=== PATIENT | female | born 1935 | race Caucasian/White ===

== ENCOUNTER 2023-05-25 10:27 | Observation (INO) | payer MEDICARE, OTHER, SELFPAY ==
[2023-05-25] VITALS (116 sets, daily range): BP systolic 61–164; BP diastolic 11–131; PULSE 44–137; RESP 26–46; TEMP 36.1–38.4; O2SAT 49–100
--- NOTE | ~2023-05-25 | XR_ITS ---
XR chest 1V portable DATE: 05/25/2023 11:15 INDICATION: ET tube placement TECHNIQUE: Portable AP chest on 05/25/2023 at 1112 hours COMPARISON: None FINDINGS: Tip of ET tube is within 1.5 cm of neda. Cornish range is 2-5 cm. Normal heart size. Aortic arch calcification. Moderate hyperinflation. Mild infiltrate or atelectasis is suggested in the left lower lobe. Retrocar diac density suggesting possible hiatal hernia. No pleural effusion or pulmonary vascular congestion or pneumothorax. No hilar or mediastinal enlarge ment is evident. Diffuse osteopenia. IMPRESSION: ET tube tip within 1.5 cm of neda; ideal range is 2-5 cm Mild left lower lobe infiltrate or atelectasis and possible hiatal hernia Aortic atherosclerosis Reviewed, dictated and finalized at [facility].
--- NOTE | ~2023-05-25 | CT_ITS ---
EXAMINATION: CT brain wo con DATE: 05/25/2023 14:22 INDICATION: Found unresponsive TECHNIQUE: Computed tomography (CT) of the head was performed without intravenous contrast. The mA wa s adjusted according to patient size. Iterative reconstruction technique was employed. Exam dose: 68 1.0 mGy-cm total exam DLP. COMPARISON: 11/08/2015 CT brain FINDINGS: There is a huge right frontal cerebral hematoma with surrounding edema. The hematoma measur es up to 6.7 cm anteroposterior and 5.4 cm transverse dimension. There is subfalcine prominent leftwa rd shift of the midline structures with effacement of the frontal horns and bodies of the lateral jeffrey tricles. There are some areas of subarachnoid blood most prominently in the high left frontal area. There is prominent encephalomalacia of the left frontal lobe likely due to prior infarct or hematoma or other remote insult. No subdural or epidural hematoma is detected. No skull fracture is detected. The mastoid air cells and included paranasal sinuses are normally developed and aerated. IMPRESSION: Acute right frontal cerebral hematoma with prominent subfalcine leftward shift of the mi dline structures, mild subarachnoid hemorrhage Prominent chronic left frontal encephalomalacia Reviewed, dictated and finalized at [facility] Reviewed, dictated and finalized at [facility]. IMPRESSION: Acute right frontal cerebral hematoma with prominent subfalcine le ftward shift of the midline structures, mild subarachnoid hemorrhage Prominent chronic left frontal encephalomalacia
--- NOTE | ~2023-05-25 | CT_ITS ---
. EXAMINATION: CT chest abdomen pelvis wo con DATE: 05/25/2023 14:22 INDICATION: Found unresponsive TECHNIQUE: Computed tomography (CT) of the chest, abdomen, and pelvis was performed without intraveno us contrast. Automated exposure control and iterative reconstruction technique were employed. Exam do se: 1061.47 mGy-cm total exam DLP. COMPARISON: 05/2020 portable AP chest at 1112 hours FINDINGS: CHEST CT: ET tube tip is situated at the neda, directed toward the right mainstem bronchus. Repositioning at least 2 to 3 cm proximally is recommended. Heart size is normal. No pericardial or pleural effusion. No thoracic aortic aneurysm. There is thora cic aortic, great vessel and coronary artery calcification. Moderately large sliding type hiatal hernia. There calcified left hilar nodes. There is suggestion of some bronchial narrowing of the left lower l obe and some soft tissue fullness of the left infrahilar area, with infiltrate or atelectasis in the left lower lobe. This examination is limited due to motion. Consider repeat examination when the nena ent's condition permits with IV contrast material and possibly bronchoscopy as clinically appropriate , in order to exclude any possible endobronchial obstructing lesion or left hilar mass lesion or uyliana opathy. Bilateral posterior apical scarring. ABDOMEN/PELVIS CT: There are multiple stones in the dependent aspect of the gallbladder. No gallbladder wall thickening or pericholecystic fluid or fat stranding. No bile duct or pancreatic duct dilatation is evident. Occasional hepatic and multiple splenic calcified granulomas consistent with old granulomatous diseas e. No apparent hepatic, splenic, pancreatic, and adrenal or renal space-occupying mass lesion is evid ent on this limited noncontrast examination with motion. No urinary tract calculus or hydroureteronephrosis. The urinary bladder is completely evacuated by a Tapia catheter. The uterus and adnexal areas are unremarkable. Diverticulosis of the colon; no CT evidence of diverticulitis. No bowel obstruction or intraperitonea l free air. There is extensive atherosclerotic calcification of the abdominal aorta but no aneurysm. There is hugo cification of the origins of the celiac and superior mesenteric and renal arteries. No intraperitoneal or retroperitoneal or pelvic mass lesion or adenopathy or ascites. Small fat-containing umbilical hernia. Prominent degenerative change of the lower thoracic and lumbar spine. Old fracture deformity of the right pubic bone and right inferior pubic ramus. IMPRESSION: ET tube situated near the neda; proximal withdrawal approximately 2 to 3 cm is recomme nded Moderately large sliding hiatal hernia Left lower lobe infiltrate or atelectasis with some left lower lobe bronchial narrowing; recommend el ective CT with IV contrast material and/or bronchoscopy for further evaluation to exclude left malign marysol Cholelithiasis Diverticulosis of the colon Reviewed, dictated and finalized at [facility] Reviewed, dictated and finalized at [facility] IMPRESSION: ET tube situated near the neda; proximal withdrawal approximatel y 2 to 3 cm is recommended Moderately large sliding hiatal hernia Left lower lobe infiltrate or atelectasis with some left lower lobe bronchial n arrowing; recommend elective CT with IV contrast material and/or bronchoscopy f or further evaluation to exclude left malignancy Cholelithiasis Diverticulosis of the colon
--- NOTE | ~2023-05-25 | CT_ITS ---
EXAMINATION: CT cervical spine wo con DATE: 05/25/2023 14:22 INDICATION: Found unresponsive TECHNIQUE: Computed tomography (CT) of the cervical spine was performed without contrast. Iterative r econstruction technique was employed. Exam dose: 273.43 mGy-cm total exam DLP. Spine COMPARISON: None FINDINGS: Examination is limited by motion. There is reversal cervical curvature which may be due to muscle spasm. C1 and C2 are normally aligned and the odontoid process is intact. Moderate degenerative disc disease at C2-3 and C3-4 and severe degenerative disc disease at C4-5 and C5-6. Moderately severe degenerative disc disease at C6-7. No fracture or dislocation or locked facet is detected. IMPRESSION: Reversal of cervical curvature Prominent multilevel degenerative disc disease of the cervical spine No fracture or dislocation or locked facet is detected on this limited study with motion Reviewed, dictated and finalized at [facility] Reviewed, dictated and finalized at [facility] IMPRESSION: Reversal of cervical curvature Prominent multilevel degenerative disc disease of the cervical spine No fracture or dislocation or locked facet is detected on this limited study wi th motion
--- NOTE | 2023-05-25 10:30 | PC.NURSE ---
ETT 7.0, 27 at lip. Pupils 4mm bilaterally, reactive. No purposeful movement, withdraws to pain.
--- NOTE | 2023-05-25 10:33 | ECG_ITS ---
Measurements Intervals [place] Rate: 113 P: 81 [place]: 157 QRS: 59 QRSD: 70 T: 89 QT: 295 QTc: 406 Interpretive Statements SINUS TACHYCARDIA WITH PREMATURE ATRIAL CONTRACTION LOW QRS VOLTAGE IN PRECORDIAL LEADS [QRS DEFLECTION < 1.0 mV IN CHEST LEADS] ANTEROSEPTAL MYOCARDIAL INFARCTION , OF INDETERMINATE AGE [40+ ms Q WAVE IN V1-V4] NO PREVIOUS ECG AVAILABLE FOR COMPARISON Electronically Signed On 05-26-2023 14:07:25 CDT by Emily Ambrocio M.D.
[2023-05-25] MEDS: MIDAZOLAM HCL (*CRX) 2 MG/2 ML VIAL IV PUSH ×2 (10:43→11:38)
[2023-05-25 11:05] LABS: Alveolar/Arterial O2 Gradient 224.8 mmHg; Base Excess ABG -5.2 mEq/l (+/-2.0); Fractional Inspired Oxygen 100 %; HCO3 ABG 17.5 mEq/l (22.0-26.0); Oxygen Content ABG 18.6 %vol (16.0-22.0); Oxygen Saturation ABG 99.9 % (95.0-100.0); Oxyhemoglobin 98.6 % THb (90.0-100.0); PCO2 ABG 26.3 mmHg (35.0-45.0); PO2 ABG 461.9 mmHg (80.0-100.0); PO2 FiO2 Ratio Arterial Blood 4.62 %; Total Hemoglobin 12.5 g/dL (12.0-18.0)
[2023-05-25 11:06] LABS: Basophils Percent Auto 0.2 % (0.2-1.2); Hematocrit 34.8 % (37.0-47.0); Hemoglobin 10.8 g/dL (12.0-15.0); Immature Granulocyte Absolute 0.03 K/mm3 (0.00-0.031); Immature Granulocyte Percent A 0.2 % (0-0.5); Lymphocytes Absolute Auto 1.85 K/mm3 (0.9-3.2); Lymphocytes Percent Auto 13.4 % (18.3-44.2); Mean Corpuscular Hemoglobin 27.5 pg (26-34); Mean Corpuscular Volume 88.5 fl (80-100); Monocytes Absolute Auto 1.6 K/mm3 (0.1-0.6); Monocytes Percent Auto 11.5 % (2.6-8.5); Neutrophils Absolute Auto 10.4 K/mm3 (1.3-6.7); Neutrophils Percent Auto 74.7 % (45.5-73.1); Platelet Count Result 255 k/mm3 (150-375); Red Blood Count 3.93 M/mm3 (4.2-5.4); Red Cell Distribution Width 13.8 % (11.5-14.5); White Blood Count 13.9 K/mm3 (4.5-10.0)
[2023-05-25 11:07] LABS: Modified Allen's Test Pass; Site Drawn RIGHT RADIAL
--- NOTE | 2023-05-25 11:07 | PC.NURSE ---
Pt with two hypotensive pressures, 80's/40, MD Mccabe made aware. Plan for central line.
[2023-05-25 11:08] LABS: Arterial Blood Gas PEEP 5 cmH2O; Arterial Blood Gas Pressure Support 0 cmH2O; Arterial Blood Gas Tidal Volume 450 ml; Arterial Blood Gas Vent Mode CMV; Arterial Blood Gas Ventilator rate 22 /MIN; Device VENTILATOR
[2023-05-25] MEDS: SODIUM CHLORIDE 0.9% IV 1,000 ML 999 ML IV CONT (11:09)
[2023-05-25 11:13] LABS: Appearance Urine Clear (Clear); Bilirubin Urine Negative (Negative); Blood Urine 1+ (Negative); Color Urine Yellow (Yellow); Glucose Urine UA Trace mg/dL (Negative); Ketones Urine Trace mg/dL (Negative); Leukocyte Esterase Ur Negative LEU/UL (Negative); Nitrate Urine Negative (Negative); Protein Urine 2+ mg/dL (Negative); Urobilinogen Urine 0.2 mg/dL (<2.0)
[2023-05-25] MEDS: MIDAZOLAM 100MG/NS 100ML(*CRX) 100 MG/100 ML BAG IV CONT (11:15)
[2023-05-25 11:18] LABS: INR 1.2; Prothrombin Time 16.1 Seconds (11.1-14.7)
[2023-05-25 11:19] LABS: Partial Thromboplastin Time 29.4 SECONDS (22.3-36.8)
[2023-05-25 11:21] LABS: Alanine Aminotransferase 37 U/L (6-35); Albumin Level 4.2 g/dL (3.5-5.1); Alkaline Phosphatase 81 U/L (38-126); Anion Gap 12 mmol/L (8-16); Aspartate Amino Transferase 263 U/L (14-36); Bilirubin,Total 1.1 mg/dL (0.2-1.3); Blood Urea Nitrogen 44 mg/dL (7-17); Calcium 8.5 mg/dL (8.4-10.2); Carbon Dioxide 21 mmol/L (22-30); Chloride 104 mmol/L (98-107); Estimated Glomerular Filt Rate 21; Glucose 150 mg/dL (65-110); Magnesium 2.1 mg/dL (1.6-2.3); Potassium 4.5 mmol/L (3.4-5.0); Sodium 137 mmol/L (137-145)
[2023-05-25 11:22] LABS: Bacteria Urine None Seen /hpf; Non Pathogenic Casts 0-2; RBC Urine 0-2 /hpf (0-2); Squamous Epithelial Cell Urine None seen /hpf (Few); WBC Urine 0-5 /hpf
[2023-05-25 11:25] LABS: Add Urine Microscopic? YES
--- NOTE | 2023-05-25 11:29 | PC.NURSE ---
MD Mccabe at bedside to place central line. Crash cart at bedside, family informed and signed consent, time out completed.
[2023-05-25] MEDS: FENTANYL 2,500MCG/NS250ML(*CRX 2,500 MCG/250 ML BAG IV CONT (11:30)
[2023-05-25 11:34] LABS: CRP 23.7 mg/dL (<1.0); Creatine Kinase 6674 U/L (30-135)
[2023-05-25] MEDS: CEFEPIME 2 GM/NS 50 ML 2 GM/50 ML BAG IVPB (11:54)
[2023-05-25] MEDS: NOREPINEPHRINE 8 MG/D5W 250 ML 8 MG/250 ML BAG 9.38 MG IV CONT (12:05)
[2023-05-25 12:14] LABS: Lactic Acid Reflex 2.8 mmol/L (0.7-2.0)
[2023-05-25 12:15] LABS: Acetaminophen < 10 ug/mL (10-30); Ethanol < 10 mg/dL (<10); Salicylate < 1.0 mg/dL (2-20)
--- NOTE | 2023-05-25 12:17 | PC.NURSE ---
Per MD Mccabe, increase Versed hourly rate to 4mg/hr at this time. Pt agitated, overbreathing vent by 20 breaths/min. See MAR for titration.
[2023-05-25 12:22] LABS: Amphetamine Screen Urine Negative (Negative); Barbiturate Screen Urine Negative (Negative); Benzodiazepines Screen Urine Negative (Negative); Cannabinoid Screen Urine Negative (Negative); Cocaine Screen Urine Negative (Negative); Methadone Screen Urine Negative (Negative); Opiate Screen Urine Negative (Negative); Phencyclidine Screen Urine Negative (Negative)
[2023-05-25] MEDS: SODIUM CHLORIDE 0.9% IV 2,300 ML/1,000 ML BAG 999 ML IV CONT (12:47)
[2023-05-25] MEDS: dexmedeTOMIDine 400 MCG/100 ML 400 MCG/100 ML BAG IV CONT (13:24)
--- NOTE | 2023-05-25 13:32 | PC.NURSE ---
This RN has not been able to leave bedside since patient arrival due to critical patient care. Pt difficult to sedate, has continued to overbreathe vent with RR 35-45/min. Increased work of breathing despite sedation, causing all extremities to contract with each breath as well as abdominal accessory muscles. Due to such movement, unable to get imaging or leave patient room safely. Pt now somewhat more comfortable with precedex. Will leave for CT scan as soon as patient on transfer monitors and RT/extra help present.
[2023-05-25] MEDS: levETIRAcetam 1000MG/NACL100ML 1,000 MG/100 ML BAG 400 MG IVPB (14:29)
--- NOTE | 2023-05-25 14:29 | ED.AMS ---
HPI - Altered Mental Status General Chief Complaint: Altered Mental Status Stated Complaint: UNRESPONSIVE Time Seen by Provider: 05/25/23 10:32 History of Present Illness HPI narrative: HPI limited due to patient's unresponsiveness This is an 87-year-old female, brought in by EMS for altered mental status and unresponsiveness. EMS reports they were called to the patient's home when she was found unresponsive in bed. Family member is stated they had not heard from the patient in 2 days. On arrival at her home, the patient was lying in bed with a book in her lap but did not respond to voice or painful stimulus. EMS intubated the patient at the scene for airway protection and brought her to the emergency room. Related Data Home Medications Medication Instructions Recorded Confirmed aspirin 81 mg tablet,delayed 81 mg PO DAILY 03/19/20 12/30/22 release biotin 10,000 mcg disintegrating 10,000 mcg PO DAILY 03/19/20 12/30/22 tablet multivitamin 1 tablet PO DAILY 03/19/20 12/30/22 vitamin B complex 1 cap PO DAILY 05/17/21 12/30/22 vitamins A,C,C-ncbi-perfkk 4,296 1 cap PO BID 12/30/22 12/30/22 mcg-226 mg-90 mg capsule (PreserVision AREDS) Allergies Allergy/AdvReac Type Severity Reaction Status Date / Time No Known Allergies Allergy Verified 12/30/22 10:36 Review of Systems Review of Systems: Unable to obtain review of systems due to patient's unresponsiveness PMFSH Past Medical History Medical History Depression GERD (gastroesophageal reflux disease) HLD (hyperlipidemia) Surgical History Surgical History History of cataract surgery (~2011) Family History Family History Father Parkinsons Sibling FH: prostate cancer Social History Social History Smoking status: Never smoker Second hand tobacco smoke exposure: No Alcohol intake: never Substance use: never Substance use type: does not use Lack of Transportation: No Lack of Food: Never True Current Housing: I Have Housing Concerned About Future Housing: No Difficulty Paying Gas/Electric Bills: No Difficulty Paying for Meds: No Currently Unemployed: No Education: High School Diploma/GED Difficulty w/ Childcare or Family Care: No Living arrangements: alone Occupation/Education: retired Gender identity (if verbalized by the patient): Female Sexual Orientation (if Verbalized by the Patient): Straight or Heterosexual Spiritual care concerns: No Agree to blood products: Yes Exam Narrative: GENERAL: Well-developed, well-nourished, intubated and unresponsive HEAD: Normocephalic, atraumatic. EYES: PERRLA and EOMI. pupils 3 mm and sluggishly reactive bilaterally ENT: Intubated mucous membranes moist. Bilateral TMs pearly sanchez nonbulging NECK: Supple. No adenopathy or masses. CHEST: Coarse transmitted upper airway sounds with good aeration bilaterally. Tachypneic, intubated. No wheezes rales or rhonchi HEART: Tachycardic with regular rhythm. No murmur heard. Normal peripheral pulses. ABDOMEN: Soft, nondistended, normal active bowel sounds. EXTREMITIES: Normal range of motion. No edema. SKIN: Warm, dry, no rash. NEURO: Intubated and unresponsive, not on sedating medications. The patient somewhat withdraws from noxious stimulus. There is no noted purposeful movement Course Course Emergency Course: 10:32 - I have a high suspicion for sepsis, likely aspiration pneumonia versus UTI. Will start sepsis protocol with antibiotics. Lactic acid pending and the patient's blood pressure was in the normal limits. 11:20 - The patient has now become hypotensive. The remaining 30 cc/kg fluid bolus is added and will begin Levophed with plan for central line placement. Consent obtained from the
--- NOTE | 2023-05-25 14:57 | PC.NURSE ---
MD Mccabe informed by this RN that SpO2 decreasing with good waveform. MD Mccabe now at bedside. Pupils remain equal at 3mm and reactive. MD speaking with family regarding their wishes for patient, possible comfort care.
[2023-05-25 15:04] LABS: Reflex Lactic Acid Yes or No Add Lactic
[2023-05-25] MEDS: GLYCOPYRROLATE INJ (*SP) 0.2 MG/ML VIAL 0.1 MG IV PUSH (15:46)
--- NOTE | 2023-05-25 16:13 | PC.NURSE ---
Plan for comfort measures and extubation. Trying to get patient/family an inpatient room for comfort measures. Waiting to hear back about possible room placement. Will extubate just before transferring to room per family wishes/MD Mccabe. Multiple family members at bedside. Pt remains on drips until extubation.
[2023-05-25] MEDS: LORazepam INJ (*CRX) 2 MG/ML VIAL IV PUSH ×2 (16:21→16:47)
[2023-05-25] MEDS: MORPHINE SULFATE INJ (*CRX) 10 MG/ML AMP 5 MG IV PUSH (16:23)
--- NOTE | 2023-05-25 16:26 | PC.NURSE ---
Pt extubated at this time with RTMD, RN at bedside. All drips turned off per MD Mccabe. Pt placed on 4L NC for comfort.
[2023-05-25] MEDS: MORPHINE SULFATE (*CRX) 2 MG/ML INJ IV PUSH ×6 (16:41→21:06)
--- NOTE | 2023-05-25 17:40 | ADMGEN ---
This patient, Eda Middleton, was admitted to Medical Room 242-. Patient/family oriented to hospital policies and general routines including ID bracelet, bed and alarms, visiting hours, pain management, procedures, bathroom and other care routines, personal items, smoking policy, room service/diet, and visiting hours. Information on how to activate the Rapid Response Team has been discussed. Patient/Family are encouraged to report perceived risks to care and to ask questions if they do not understand what they are told or what they should do.
--- NOTE | 2023-05-25 18:14 | PC.NURSE ---
Pt is on comfort care. talked to hospitalist and she said there is no need to go over home medications upon admission as they are no longer going to be given.
--- NOTE | 2023-05-25 20:29 | PM.IMHP ---
H&P: HPI History of Present Illness Date/Time: 05/25/23 20:29 Chief Complaint: Altered Mental Status Narrative: HPI and Summary 87-year-old female found unresponsive with past medical history of high cholesterol, untreated and cataract surgery. Patient brought into the emergency department by EMS after being found at home unresponsive in bed. Family member reported that she had not heard from the patient for the last 2 days. Went to her home to do a wellness check. Patient would not respond to voice or painful stimuli. 911 was called and EMS intubated patient at the scene. After arrival to the ED patient was found to have IPH and SAH with shift. care was discussed with Jackiey, likelihood of poor outcome and family voiced that patient would likely not want surgery. Ultimately patient was placed on comfort care and extubated. medications for airway secretions, pain, anxiety/agitation and 1 round of glucocorticoids ordered. Patient passed on 05/26/2023 with family members at bedside. See nursing documentation for further details and time of . History obtained from family members, ED provider report, and chart review. Review of Systems Review of Systems: All systems reviewed & are unremarkable except as noted in HPI and below PMFSH Past Medical History Medical History Depression GERD (gastroesophageal reflux disease) HLD (hyperlipidemia) Surgical History Surgical History History of cataract surgery (~2011) Family History Family History Father Parkinsons Sibling FH: prostate cancer Social History Social History Smoking status: Never smoker Second hand tobacco smoke exposure: No Alcohol intake: never Substance use: never Substance use type: does not use Lack of Transportation: No Lack of Food: Never True Current Housing: I Have Housing Concerned About Future Housing: No Difficulty Paying Gas/Electric Bills: No Difficulty Paying for Meds: No Currently Unemployed: No Education: High School Diploma/GED Difficulty w/ Childcare or Family Care: No Living arrangements: alone Occupation/Education: retired Gender identity (if verbalized by the patient): Female Sexual Orientation (if Verbalized by the Patient): Straight or Heterosexual Spiritual care concerns: No Agree to blood products: Yes Meds Home Medications and Allergies Home Medications Medication Instructions Recorded Confirmed Type aspirin 81 mg tablet,delayed 81 mg PO DAILY 03/19/20 12/30/22 History release biotin 10,000 mcg disintegrating 10,000 mcg PO DAILY 03/19/20 12/30/22 History tablet multivitamin 1 tablet PO DAILY 03/19/20 12/30/22 History vitamin B complex 1 cap PO DAILY 05/17/21 12/30/22 History triamcinolone acetonide 0.1 % 1 applic topical TID #30 grams 12/30/22 12/30/22 Rx topical cream vitamins A,C,G-zkkw-celhmk 4,296 1 cap PO BID 12/30/22 12/30/22 History mcg-226 mg-90 mg capsule (PreserVision AREDS) famotidine 40 mg tablet 40 mg PO DAILY #90 tabs 03/14/23 Rx Allergies Allergy/AdvReac Type Severity Reaction Status Date / Time No Known Allergies Allergy Verified 12/30/22 10:36 Vital Signs Vital Signs - 24 hr 05/25/23 10:28 05/25/23 11:15 05/25/23 10:30 Temperature 100.3 F H Pulse Rate 137 H 117 H Respiratory Rate 39 H 38 H Blood Pressure 140/30 L Pulse Oximetry 86 L 100 Oxygen Delivery Mechanical Ventilation Mechanical Ventilation Fraction of Inspired Oxygen 100 100 05/25/23 11:28 05/25/23 11:30 05/25/23 11:45 Temperature Pulse Rate 117 H 113 H 122 H Respiratory Rate 40 H 32 H Blood Pressure Pulse Oximetry 99 Oxygen Delivery Mechanical Ventilation Fraction of Inspired Oxygen 40 05/25/23 1
[2023-05-25] MEDS: GLYCOPYRROLATE INJ (*SP) 0.2 MG/ML VIAL IV PUSH (21:11)
[2023-05-25] MEDS: MORPHINE 50 MG/NS 100ML (*CRX) 50 MG/100 ML BAG IV CONT (21:38)
[2023-05-26] MEDS: MORPHINE SULFATE (*CRX) 2 MG/ML INJ 1 MG IV PUSH (01:11)
--- NOTE | 2023-05-26 03:29 | PC.NURSE ---
Pt found without respirations, charge nurse notified, time of was 0125. Approx around 0215 central line, IV, and Tapia catheter were removed.
== END 2023-05-26 01:25 | disposition expired ==
LOC: ANHED 13:40 → ANH2MED 16:46
PROVIDERS: Admitting Provider Internal Medicine; Emergency Provider Preventive Medicine Aerospace Medicine; PCP Family Medicine; Visit Provider Internal Medicine
DX: A41.9 Sepsis, unspecified organism (principal); J18.9 Pneumonia, unspecified organism; M62.82 Rhabdomyolysis; Z51.5 Encounter for palliative care; I60.9 Nontraumatic subarachnoid hemorrhage, unspecified; I61.9 Nontraumatic intracerebral hemorrhage, unspecified; K80.20 Calculus of gallbladder without cholecystitis without obstruction; N17.9 Acute kidney failure, unspecified; B95.7 Other staphylococcus as the cause of diseases classified elsewhere; R00.0 Tachycardia, unspecified; J98.11 Atelectasis; E78.00 Pure hypercholesterolemia, unspecified; R40.4 Transient alteration of awareness; K57.90 Diverticulosis of intestine, part unspecified, without perforation or abscess without bleeding; Z93.0 Tracheostomy status; K44.9 Diaphragmatic hernia without obstruction or gangrene; M50.30 Other cervical disc degeneration, unspecified cervical region; I70.0 Atherosclerosis of aorta; F32.A Depression, unspecified; K21.9 Gastro-esophageal reflux disease without esophagitis; E78.5 Hyperlipidemia, unspecified; Z79.82 Long term (current) use of aspirin; Z79.899 Other long term (current) drug therapy
CPT/HCPCS: 36415; 36556; 36600; 70450; 71045; 71250; 72125; 74176; 80053; 80307; 81001; 82550; 82805; 83605; 83735; 85025; 85610; 85730; 86140; 87040; 87147; 87181; 87186; 93005; 96361; 96365; 96366; 96367; 96368; 96375; 96376; 99291; C1751; G0378; J0692; J1953; J2060; J2250; J2270; J3010; J7030